=== PATIENT | female | born 1965 | race African-American/Black ===

== ENCOUNTER 2016-10-21 08:48 | Inpatient (IN) | payer OTHER ==
--- NOTE | ~2016-10-21 | CO ---
Unit #: [id number] #: [id number] Patient: HAILEY DONALDSON [id number] [facility] [address] [place], [place] [address] [id number] I MR#: [id number] NAME: HAILEY DONALDSON ROOM: 310 Age: Sex: F Admission Date: 10/21/2016 : 1965 Attending Physician: Rao Jimenez M.D. Primary Care Physician: Misty Slade Requesting Physician: Petra Copeland M.D. Consultation Date: 10/21/2016 CONSULTATION REPORT REASON FOR CONSULT Altered mental status, abnormal speech. PATIENT IDENTIFICATION This is a 51-year-old, -Romanian female evaluated in ER room 9 at [facility]. SOURCE OF INFORMATION Came from the medical record. HISTORY OF PRESENT ILLNESS This is a 51-year-old, -Romanian female with a past medical history that is not known in detail as the patient is a poor historian who presents to [facility] with altered mental status. Apparently, she was found slumped by her car by neighbors. She was not answering questions appropriately. EMS was called and she was brought to the ER for further evaluation. In the ER, her initial vital signs were stable. She was given 0.4 mg of Narcan with minimal to no response or improvement seen. She also received 2 liters of normal saline. Head CT was negative for any acute intracranial findings. Full dictated report is pending. Otherwise, her laboratory findings did show concern for urinary tract infection. She was given a gram of Rocephin and she is being admitted to [facility] for further evaluation and treatment. Neurology was asked to evaluate as the patient continues to be disoriented. She is also perseverating and not getting an appropriate neurologic response. Upon evaluation, the patient responds easily. She is alert, but she is disoriented. She can tell me her name. When I ask her where she is, she continues to tell me her name. She perseverates throughout evaluation. She is disoriented; however, she can name and identify and follow commands. She is not a reliable historian. She denies pain or headache. Upon reevaluation with Dr. Coyle via the robot, the patient become tearful and states "I am sorry," repeatedly. I asked her if she knows about how she got by her car and she states, I don't know, I don't know and she states, I'm sorry, I'm sorry. I asked her if she could have possibly taken the wrong medication or possibly too much medications and she becomes tearful and repeats I'm sorry, I'm sorry; however, she is not able to provide any meaningful history or clues as to why she is actually here. She is not reliable and she is disoriented currently, thus limiting our history. Again, upon my evaluation and repeat evaluation, she has no right-left confusion and she can name and identify and follow commands. She has no field cut. She has no focal weakness or paresthesia. No meningismus. She denies shortness of air or chest pain. Of note, she did have normal blood gas on arrival with pO2 of 58.3 on FIO2 of 21%. She was not hyperthermic. It sounds like she was Unit #: [id number] #: [id number] Patient: HAILEY DONALDSON found by her car rather than in her car. Otherwise, labs are mostly unremarkable. Her ammonia level was 17. Urine tox screen is positive for opiates and TCA, though she appears to have those medications on her med list. Chest x-ray is unremarkable, though limited by low lung volumes and rotation of the patient. There is perihilar and basilar crowding; but no pneumonia, edema, or effusion and heart size is normal. Troponin is unremarkable. BMP is unremarkable, other than a potassium of 3.4 and a glucose of 243. Her acetaminophen level is less than 10, salicylate level less than 4, and alcohol level is less than 5. Her white blood cell count is elevated at 14.1, her hemoglobin is 12.2, her hematocrit is 37.9, and platelet count is 355. PAST MEDICAL HISTORY According to the medicine list that she has, she appears to take medicines for diabetes and also hyperlipidemia. She may have some chronic pain, but I am not sure exactly of her history; but in reviewing her med list, she does take some medications for pain. She is also on Lyrica, though the patient denies a seizure when I ask her, but, again, she is not fully reliable. Lyrica can be used to treat pain, as well. PAST SURGICAL HISTORY Unknown. FAMILY HISTORY Unknown. SOCIAL HISTORY Unknown. ALLERGIES No known drug allergies. HOME MEDICATIONS Patient's medications are obtained from her [facility] pharmacy. They include: 1. Lyrica 100 mg p.o. b.i.d. 2. Lortab 7.5/325 one tab p.o. q.6 hours p.r.n. pain. 3. Invokana 100 mg p.o. every morning. 4. Meloxicam 15 mg p.o. daily. 5. Levemir FlexTouch 30 units subcu. at bedtime. 6. Januvia 100 mg p.o. daily. 7. Lioresal 10 mg p.o. q.h.s. 8. Flexeril 10 mg p.o. 3 times daily p.r.n. 9. Atorvastatin 20 mg p.o. q.h.s. 10. Glucophage 100 mg p.o. b.i.d. REVIEW OF SYSTEMS Unable to fully obtain given patient's mental status and unreliability. She denies pain currently or headache or neck pain. PHYSICAL EXAMINATION VITAL SIGNS: Temperature 98, pulse 112, respirations 18, blood pressure 169/93, blood pressure on arrival was 136/80, and oxygen saturation 98%. Height and weight not documented. NEUROLOGIC: Patient is resting in bed comfortably, but she is easily arousable. She is alert. She is oriented to person only. She perseverates. She is unable to tell me where she is or why she is here. She becomes tearful throughout evaluation. When I ask her her age, she Unit #: [id number] #: [id number] Patient: HAILEY DONALDSON gives me multiple answers, none of which are her actual age. When I ask her what year she was born, she keeps repeating 90, 90, 90. When I ask her questions throughout exam, she keeps repeating I don't know, I don't know, I'm sorry, I'm sorry, I'm sorry; however, she can name and identify and she does that consistently. She can follow simple commands. She has no right/left confusion or finger agnosia. She is not dysarthric. She is emotionally labile. She is tearful at times. CRANIAL NERVES: She responds to threats in the primary and peripheral visual melgar. Eyes are conjugate without ptosis or nystagmus. Extraocular movements are intact. Sensation of face and scalp is intact. Strength of muscles of facial expression is normal. Hearing is intact to voice. Tongue is midline. Unable to fully visualize uvula and palate. Head turning and shoulder shrug are unremarkable on command. NECK: Supple. MOTOR: She demonstrates equal strength. Normal bulk and tone. SENSORY: Intact. Gait and Romberg deferred. REFLEXES: 1 out of 4 toes are equivocal. COORDINATION: Exam did not reveal any ataxia. DIAGNOSTIC STUDIES Labs and diagnostic studies are as per chart and have been reviewed. IMPRESSION 1. Altered mental status, questionable exposure, questionable medication related. Less likely seizure, but must consider. Will request EEG and MRI of the brain if able to safely obtain; although at this time we are unable to get a reliable screening done for safety. 2. UTI. 3. Treatment for sepsis with leukocytosis. 4. Diabetes mellitus type 2. 5. Elevated blood pressure. PLAN We have an unknown last known well, although she is not a candidate for acute intervention. She does not have a focal measurable neurologic deficit, but is perseverating. She is disoriented. She is now tearful, but cannot provide any history. We will certain resume her Lyrica as it is an antiseizure medications and request an EEG. The patient was hypoxic on arrival, but she is clinically improving. Her vital signs are stable. She has no meningismus. She is afebrile. She was not hyperthermic. We will try for a MRI of the brain if we are able to get history and follow up clinically. I called the number listed on her contact information to see if I could reach anyone that may be related to her or know her and apparently, it is not a working number when I try to use it. We are really limited by her history. At this time, nothing to suggest status epilepticus, recurrent seizure, though must consider seizure with postictal state; though, at this time, she is perseverating and a postictal state would not last this long. We have to consider stroke, though she is outside the window for acute intervention. We will attempt to get a MRI when possible. We will resume her home Lyrica dose, check an EEG, check a carboxyhemoglobin level, and get MRI when possible. Otherwise, we will monitor her closely and observe and follow up clinically and further recommendations pending workup and further clinical course. Patient was seen by Dr. Coyle via the robot and he agrees with the above assessment, plan, and recommendations. We will follow along with you. Unit #: [id number] #: [id number] Patient: HAILEY DONALDSON Dictated by... Yohana LojaPDariel for Manav Henderson/malcolm TD: 10/22/2016 08:31 JOB #: [id number] CONSULTATION REPORT Page 1 of 1 X Consuelo Martinez HAND CARVER X CONSULTATION REPORT
--- NOTE | ~2016-10-21 | CT71 ---
[facility] Service of [facility] RADIOLOGY TEXT RESULTS PATIENT: HAILEY DONALDSON LOCATION: [facility] : 61 UNIT #: [id number] AGE: [address]: Rao Jimenez MD SEX: F ORDER DR: [id number] [facility] [address]. [place], [place] [address] [id number] I MR#: [id number] Acc #: [id number] NAME: HAILEY DONALDSON : 1965 SEX: F STUDY DATE/TIME: 10/21/2016 9:48 UNIT: A PCU ROOM: 310 STUDY DESCRIPTION: CT Head Wo Contrast Attending Physician: Petra Copeland M.D. Ordering Physician: Ed Doctor [id number] [facility] Primary Care Physician: Misty Slade MEDICAL IMAGING REPORT This report is preliminary unless electronic signature is present EXAM CT head without contrast dated 10/21/2016 COMPARISON None HISTORY Decreased consciousness. Patient was found staring by neighbors. Lethargic today and not very responsive. TECHNIQUE CT of the head was obtained without contrast in the axial plane as per the protocol. This CT exam was performed with one or more of the following radiation dose reduction techniques: automatic exposure control, adjustment of mA and/or kV according to patient size, and iterative reconstruction. FINDINGS Age-appropriate parenchymal volume is seen. No acute intracranial hemorrhage, space-occupying mass, mass effect, midline shift or hydrocephalus. Paranasal sinuses, mastoid air cells, bones, orbits and the ocular structures do not demonstrate any significant abnormality. IMPRESSION No demonstrable acute intracranial abnormality or space-occupying mass. Dictated by... Helene Clark M.D. THIS IS AN ELECTRONICALLY VERIFIED REPORT Helene Clark M.D. at 10/22/2016 3:34 PM [facility] RADIOLOGY TEXT RESULTS PATIENT: HAILEY DONALDSON LOCATION: [facility] : 61 UNIT #: [id number] AGE: [address]: Rao Jimenez MD SEX: F ORDER DR: NEEMA/mendez TD: 10/21/2016 14:30 JOB #: [id number] MEDICAL IMAGING REPORT Page 1 of 1 COPY
--- NOTE | ~2016-10-21 | MR18 ---
[facility] A Service of [facility] RADIOLOGY TEXT RESULTS PATIENT: HAILEY DONALDSON LOCATION: [facility] 310-01 : [birth year] UNIT #: [id number] AGE: [address]: Rao Jimenez MD SEX: F ORDER DR: [id number] [facility] [address] [place], [place] [address] [id number] I MR#: [id number] Acc #: [id number] NAME: HAILEY DONALDSON : 1965 SEX: F STUDY DATE/TIME: 10/22/2016 18:06 [facility] ROOM: 310 STUDY DESCRIPTION: MR Brain Wo Contrast Attending Physician: Rao Jimenez M.D. Ordering Physician: Petra Copeland M.D. MRI CENTER REPORT This report is preliminary unless electronic signature is present. EXAM MRI brain without contrast HISTORY Lethargy. Memory loss. Decreased level of consciousness. Difficulty speaking since yesterday. FINDINGS MRI brain without contrast demonstrates no recent ischemia or infarct. 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 No intracranial mass or edema. No midline shift or ventricular dilatation or extraaxial fluid collection. IMPRESSION 1. No acute findings. No recent ischemia or infarct. 2. 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 Dictated by... Ramin Yates M.D. THIS IS AN ELECTRONICALLY VERIFIED REPORT Ramin Yates M.D. at 10/23/2016 11:20 PM DFL/pcl TD: 10/22/2016 22:24 JOB #: [id number] MRI CENTER REPORT Page 1 of 1 COPY
--- NOTE | ~2016-10-21 | HP ---
Unit #: [id number] #: [id number] Patient: HAILEY DONALDSON [id number] [facility]. [place], [place] [address] [id number] E MR#: [id number] NAME: HAILEY DONALDSON ROOM: Age: 51 Sex: F Admission Date: 10/21/2016 : 1965 Attending Physician: Noe Lewis M.D. HISTORY AND PHYSICAL CHIEF COMPLAINT Altered mental status. HISTORY OF PRESENT ILLNESS The patient is a 51-year-old female with a past medical history of diabetes and hyperlipidemia who was brought to the emergency department via EMS for evaluation of the above. The patient is a poor historian. History is obtained from discussion with ER staff, as well as record review. The patient was apparently found slumped by a car by the neighbors. She was unable to answer questions. EMS was called, and she was brought to the emergency department for further evaluation. In the emergency department, initial pulse and blood pressure were 108 and 136/80, respectively. She was given 0.4 mg of Narcan with minimal response. She also received two liters of normal saline. CT of the head showed nothing acute. Laboratory is notable for findings concerning for urinary tract infection. She was given a gram of Rocephin, and she is being admitted to [facility] for evaluation and further treatment. PAST MEDICAL HISTORY 1. Diabetes. 2. Hyperlipidemia. PAST SURGICAL HISTORY None. SOCIAL HISTORY The patient is unable to provide due to altered mental status. FAMILY HISTORY Unobtainable. REVIEW OF SYSTEMS A complete review of systems is unobtainable due to altered mental status. PHYSICAL EXAMINATION VITAL SIGNS: Temperature is 98, pulse 108, respirations 16, blood pressure 136/80, and oxygen saturation 100% on room air. GENERAL: Patient is an female who is awake, alert, and in no acute distress. She was apparently initially lethargic. HEENT: Head is atraumatic. Mucous membranes are moist. Unit #: [id number] #: [id number] Patient: HAILEY DONALDSON NECK: Supple. Trachea is midline. CARDIOVASCULAR: Regular rate and rhythm. LUNGS: Clear to auscultation bilaterally with no increased work of breathing. ABDOMEN: Soft and nontender with bowel sounds present in all four quadrants. EXTREMITIES: Nontender with no pedal edema. NEUROLOGIC: Patient is oriented to first name only. She is moving all extremities. She follows some commands. She has abnormal speech. She seems to be perseverating. She is also repeating the word "nervous" multiple times. She is answering "nervous" in response to all questions. PSYCHIATRIC: Patient demonstrates poor eye contact. SKIN: Skin of examined areas is warm and dry. DIAGNOSTIC STUDIES LABORATORY: Arterial blood gas shows a pH of 7.392, PCO2 of 41.6, and PO2 of 53.8 on room air. Complete blood count notable for white blood cell count of 14.1. Comprehensive metabolic panel notable for potassium of 3.4 and glucose is 243. Tylenol, salicylate, and alcohol levels are negative. Ammonia level is 17. Beta hydroxybutyrate is 1.1. Urinalysis notable for nitrite positive, 1+ protein, greater than 1000 glucose, 2+ ketones, and 2+ blood with 10-25 white blood cells, 4+ bacteria, and moderate squamous cells. Urine toxicology screen is positive for opiates and tricyclics. Troponin is less than 0.05. IMAGING: Chest x-ray shows vascular crowding. CT of the head shows nothing acute. CARDIOLOGY: EKG shows sinus tachycardia with a rate of 102 beats per minute. ASSESSMENT The patient is a 51-year-old female with: 1. Altered mental status. 2. Abnormal speech. The patient is repeating the same word multiple times. She is answering questions inappropriately. 3. Urinary tract infection with no urine culture in [facility] for review. The patient received Rocephin in the emergency department. 4. Sepsis. 5. Diabetes. 6. Hyperlipidemia. PLAN 1. Admit to intermediate level. 2. N.p.o. until speech evaluation. 3. Speech Therapy to evaluate and treat. 4. Bedrest. 5. Fall precautions. 6. TSH, B12, and folate. 7. Neuro checks. 8. MRI of the brain without contrast for further evaluation of abnormal speech and altered mental status. 9. Consult Neurology regarding altered mental status and abnormal speech. 10. Blood cultures x2. 11. Urine culture and sensitivity on urine in the lab. 12. Rocephin 1 g IV daily pending results of urine culture. 13. Normal saline at 125 mL/hour. 14. Sepsis protocol with stat lactic acid and repeat. Unit #: [id number] #: [id number] Patient: HAILEY DONALDSON 15. Hemoglobin A1c. 16. Low-dose sliding scale insulin with Accu-Cheks. 17. Serial cardiac enzymes. 18. Check magnesium and CPK. 19. Potassium/magnesium protocol. 20. SCDs for DVT prophylaxis. 21. Repeat labs in the morning including magnesium. 22. Hold centrally-acting medications including Lyrica, Lortab, baclofen, and Flexeril which could be contributing to altered mental status. 1. Dictated by Manav Augustine/kaur TD: 10/21/2016 17:23 JOB #: [id number] HISTORY AND PHYSICAL Page 1 of 1 X Petra Copeland MD HISTORY AND PHYSICAL
--- NOTE | ~2016-10-21 | CR72 ---
[facility] A Service of [facility] & [facility] RADIOLOGY TEXT RESULTS PATIENT: HAILEY DONALDSON LOCATION: [facility] : 61 UNIT #: [id number] AGE: [address]: Noe Lewis MD SEX: F ORDER DR: [id number] [facility] [address] [place], [place] [address] [id number] E MR#: [id number] Acc #: [id number] NAME: HAILEY DONALDSON : 1965 SEX: F STUDY DATE/TIME: 10/21/2016 09:22 UNIT: [facility] ROOM: STUDY DESCRIPTION: CR Chest Single View Portable Attending Physician: Noe Lewis M.D. Ordering Physician: Ed Doctor [id number] [facility] Primary Care Physician: Misty Slade MEDICAL IMAGING REPORT This report is preliminary unless electronic signature is present EXAM Chest portable, 10/21/2016 09:22 hours HISTORY 51-year-old with shortness of air and decreased level of consciousness today. History of diabetes. COMPARISON 08/16/2013 FINDINGS Single portable upright view of the chest demonstrates low lung volumes in rotation of the patient. There is perihilar and basilar vascular crowding without definite pneumonia, edema or effusion. The heart size is normal. No free air in the abdomen. IMPRESSION Film is limited by low lung volumes and rotation of the patient. There is perihilar and basilar vascular crowding but no pneumonia, edema or effusion. Heart size is normal. Dictated by... Lula Herrera M.D. THIS IS AN ELECTRONICALLY VERIFIED REPORT Lula Herrera M.D. at 10/21/2016 2:33 PM Surya TD: 10/21/2016 13:57 JOB #: [id number] MEDICAL IMAGING REPORT Page 1 of 1 COPY
--- NOTE | ~2016-10-21 | HP ---
Unit #: [id number] #: [id number] Patient: HAILEY DONALDSON [id number] [facility]. [place], [place] [address] [id number] I MR#: [id number] NAME: HAILEY DONALDSON ROOM: 310 Age: 51 Sex: F Admission Date: 10/21/2016 : 1965 Attending Physician: Rao Jimenez M.D. Primary Care Physician: Misty Slade HISTORY AND PHYSICAL DISCHARGE DIAGNOSES 1. Anxiety with psychotic features. 2. Urinary tract infection. 3. Diabetic neuropathy. HOSPITAL COURSE The patient is a 51-year-old female who presented to [facility] on 10/21/16 with changes in her mental status. She had apparently been found slumped over in her car. The car was in her driveway at home. She was fairly incoherent and EMS was called. Initially, it was felt the patient was encephalopathic secondary to a urinary tract infection versus some sort of stroke. Workup for both was benign. The patient's mental status returned to baseline over the course of a couple of days. Further discussion with the patient reveals an abnormal amount of stress over the past few weeks. 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 She began to be unable to pay her bills and is afraid she is going to end up homeless which she had apparently been approximately one year ago. The patient states that she became convinced that her apartment was full of bedbugs. She now thinks that this delusion began based on her paresthesias associated with her peripheral neuropathy which she describes as feeling like bugs crawling on her legs at night. The patient is tearful upon discussion of her current situation and has good insight into what has occurred. She agrees to follow up with outpatient counseling be it [facility] or some other setting. I have started the patient on Paxil. DISCHARGE MEDICATIONS 1. Lyrica 100 mg p.o. b.i.d. 2. Glucophage 1000 mg p.o. b.i.d. 3. Januvia 100 mg p.o. daily. 4. Lipitor 20 mg p.o. q. h.s. 5. Levemir FlexPen 30 units subcu at bedtime. 6. Mobic 15 mg p.o. daily. 7. Lortab 7.5/325, one p.o. q.6 hours p.r.n. pain. 8. Baclofen 10 mg p.o. q. h.s. 9. Flexeril 10 mg p.o. t.i.d. 10. Invokana 100 mg p.o. q. a.m. 11. Paxil 20 mg p.o. daily. 12. Keflex 500 mg, one p.o. t.i.d. x9 days. Unit #: [id number] #: [id number] Patient: HAILEY DONALDSON FOLLOWUP As mentioned above, the patient is to follow up with counselor of her choice. Additionally, she should continue her follow up with her neurologist for her neuropathy. Dictated by Manav Kuo/rick TD: 10/25/2016 08:33 JOB #: [id number] HISTORY AND PHYSICAL Page 1 of 1 X Rao Jimenez MD HISTORY AND PHYSICAL
--- NOTE | ~2016-10-21 | EKG ---
PATIENT: HAILEY CEVALLOS UNIT #: [id number] Ventricular Rate: 102 BPM Atrial Rate: 102 BPM P-R Interval: 142 ms QRS Duration: 148 ms Q-T Interval: 428 ms QTC Calculation(Bezet): 557 ms P Castle: 66 degrees Calculated R Castle: 82 degrees Calculated T Castle: 24 degrees Diagnosis Line: Sinus tachycardia Diagnosis Line: Right bundle branch block with repolarization Diagnosis Line: abnormality Diagnosis Line: Abnormal ECG Diagnosis Line: No previous ECGs available Diagnosis Line: Confirmed by SUMAN PELLETIER MD ([id number]) on 10/21/2016 Diagnosis Line: 11:57:52 AM INTERPRETING MD: PRABHU MARK
--- NOTE | ~2016-10-21 | EE ---
Unit #: [id number] #: [id number] Patient: HAILEY DONALDSON [id number] [address] [address] [id number] MR#: [id number] NAME: HAILEY DONALDSON : 1965 SEX: F STUDY DATE/TIME: 10/22/2016 UNIT: C3A PCU ROOM: 310 STUDY DESCRIPTION: EEG Attending Physician: Rao Jimenez M.D. Referring Physician: Petra Copeland M.D. Primary Care Physician: Misty Slade NEURODIAGNOSTICS REPORT PROCEDURE PERFORMED EEG. REASON FOR STUDY Acute mental status changes, UTI and sepsis. EEG DESCRIPTION This is an inpatient, digitally recorded, multi-montage, adult EEG with leads placed according to the International 10-20 system. Hyperventilation and photic stimulation were attempted. PROCEDURE REPORT With the patient fully aroused, there is 9- to 10-Hz posterior background, but there was then alpha dropout. The patient did become drowsy, but I did not see any deeper stages of sleep. Hyperventilation and photic stimulation were attempted, but I did not see any driving, asymmetry or paroxysmal activity. No focal slowing was seen. No clearcut interictal discharges were seen. IMPRESSION This is an essentially normal adult, awake and drowsy EEG. An EEG like this does not rule out epilepsy. Clinical correlation is recommended. Dictated by... Manav Henderson/rima TD: 10/27/2016 08:45 JOB #: [id number] Unit #: [id number] #: [id number] Patient: HAILEY DONALDSON NEURODIAGNOSTICS REPORT Page 1 of 1 X Alexus Coyle MD NEURODIAGNOSTICS REPORT
[2016-10-21 10:42] LABS: ARTERIAL BLD GAS O2 SATURATION 90.1 % (90.0-100.0); ARTERIAL BLOOD GAS CARBOXY HB 1.6 %sat (0.0-9.0); ARTERIAL BLOOD GAS HCO3 25.3 mmol/L; ARTERIAL BLOOD GAS MET HB 0.9 %sat (0.0-2.0); ARTERIAL BLOOD GAS PCO2 41.6 mmHg (35.0-45.0); ARTERIAL BLOOD GAS pH 7.392 (7.350-7.450)
[2016-10-21 10:43] LABS: ARTERIAL BLOOD GAS ALLEN TEST NORMAL; ARTERIAL BLOOD GAS ART SITE RIGHT RADIAL; ARTERIAL BLOOD GAS PO2 53.8 mmHg (80.0-100); ARTERIAL DRAW? YES
[2016-10-21 11:09] LABS: BASOPHIL% 0.2 % (0-2.5); HEMATOCRIT 37.9 % (35.0-45.0); HEMOGLOBIN 12.2 gm/dL (12.0-16.0); LYMPHOCYTE% 7.5 % (17.0-45.0); MEAN CELL VOLUME 87.5 FL (83-96); MEAN CORPUSCULAR HEMOGLOBIN 28.2 PG (28-34); MEAN CORPUSCULAR HGB CONC 32.2 g/dL (30-36); MEAN PLATELET VOLUME 7.4 FL (6.5-11.5); MONOCYTE# 0.6 X10e3 (0-1.0); NEUTROPHIL# 12.4 X10e3 (1.5-7.1); NEUTROPHIL% 88.3 % (40-75); PLATELET COUNT 355 X10e3 (140-420); RED BLOOD COUNT 4.33 X10e (3.90-5.30); RED CELL DISTRIBUTION WIDTH 14.1 % (11.0-15.5); WHITE BLOOD COUNT 14.1 X10e3 (4.0-10.5)
[2016-10-21 11:17] LABS: DIFF IND NO
[2016-10-21 11:34] LABS: ALBUMIN SERUM 4.2 g/dL (3.5-5.0); ALKALINE PHOSPHATASE 56 U/L (32-92); ALT (SGPT) 20 U/L (10-40); AST (SGOT) 18 U/L (10-42); BILIRUBIN, DIRECT 0.1 mg/dL (0.0-0.2); BILIRUBIN,INDIRECT 0.7 mg/dL (0.0-0.9); BILIRUBIN,TOTAL 0.8 mg/dL (0.2-2.0); BLOOD UREA NITROGEN 14 mg/dL (9-23); BUN/CREATININE RATIO 23.33; CALCIUM SERUM 9.3 mg/dL (8.4-10.2); CARBON DIOXIDE 26 mmol/L (22-31); CHLORIDE 101 mmol/L (100-111); CREATININE SERUM 0.6 mg/dL (0.6-1.4); GLOM FILT RATE Estimated 104.1 mL/min (>60); GLUCOSE FASTING 243 mg/dL (70-110); POTASSIUM 3.4 mmol/L (3.5-5.1); PROTEIN TOTAL SERUM 7.8 g/dL (6.0-8.3); SALICYLATE <4.0 mg/dL; SODIUM 135 mmol/L (135-145)
[2016-10-21 11:35] LABS: ACETAMINOPHEN <10 ug/mL; ALCOHOL BLOOD <5 mg/dL (0)
[2016-10-21 11:41] LABS: URINE SOURCE CLEAN CATCH
[2016-10-21] MEDS ORDERED: LYRICA PO (11:49)
[2016-10-21] MEDS ORDERED: PATIENT'S PHARMACY (11:49)
[2016-10-21] MEDS ORDERED: MOBIC PO (11:50)
[2016-10-21] MEDS ORDERED: INVOKANA100 MG PO (11:50)
[2016-10-21] MEDS ORDERED: LORTAB 7.5-3251 EACH PO (11:50)
[2016-10-21] MEDS ORDERED: FLEXERIL10 MG PO (11:51)
[2016-10-21] MEDS ORDERED: LIPITOR20 MG PO (11:51)
[2016-10-21] MEDS ORDERED: LIORESAL10 MG PO (11:51)
[2016-10-21] MEDS ORDERED: JANUVIA PO (11:51)
[2016-10-21] MEDS ORDERED: LEVEMIR FL100 UNIT/1 SUBQ (11:51)
[2016-10-21] MEDS ORDERED: METFORMIN PO (11:52)
[2016-10-21 12:00] LABS: URINE APPEARANCE CLOUDY; URINE BILIRUBIN NEG (NEG); URINE BLOOD 2+ (NEG); URINE COLOR YELLOW; URINE GLUCOSE >1000 MG/DL (NEG); URINE KETONE 2+ (NEG); URINE LEUKOCYTE ESTERASE NEG (NEG); URINE NITRATE POS (NEG); URINE PH 5.5 (5-8); URINE PROTEIN 1+ (NEG); URINE SPECIFIC GRAVITY 1.031 (1.003-1.035)
[2016-10-21 12:03] LABS: CULTURE INDICATED? YES; URBCS1 AUWI 0-2 /[HPF] (0-2); URINE BACTERIA AUWI 4+ (NEGATIVE); URINE SQUAMOUS EPITHELIAL CELL MOD /[HPF]
[2016-10-21 12:22] LABS: AMPHETAMINE NEG (NEG); BARBITURATES NEG (NEG); BENZODIAZEPINES NEG (NEG); COCAINE NEG (NEG); MARIJUANA NEG (NEG); OPIATES POS (NEG); TRICYCLIC ANTIDEPRESSANTS POS (NEG); U METHADONE NEG (NEG)
[2016-10-21 14:48] LABS: POC - CKMB 5.9 ng/mL (0.0-7.9); POC - TROPONIN <0.05 ng/mL (<=0.05)
[2016-10-21 20:26] LABS: MAGNESIUM 1.6 mg/dL (1.6-3.0)
[2016-10-21 20:54] LABS: FOLATE (FOLIC ACID) >23.3 ng/mL (>5.8)
[2016-10-21 23:43] LABS: %MB 3.7 % (0.0-4.0); MB 7.1 ng/ml
[2016-10-22 04:15] LABS: BASOPHIL# 0.1 X10e3 (0-0.3); BASOPHIL% 0.8 % (0-2.5); DIFF IND NO; EOSINOPHIL# 0.1 X10e3 (0-0.7); EOSINOPHIL% 1.1 % (0.0-7.0); HEMOGLOBIN 12.3 gm/dL (12.0-16.0); LYMPHOCYTE# 2.2 X10e3 (1.0-3.5); LYMPHOCYTE% 19.3 % (17.0-45.0); MEAN CELL VOLUME 86.6 FL (83-96); MEAN CORPUSCULAR HEMOGLOBIN 28.2 PG (28-34); MEAN CORPUSCULAR HGB CONC 32.5 g/dL (30-36); MEAN PLATELET VOLUME 6.9 FL (6.5-11.5); MONOCYTE# 0.8 X10e3 (0-1.0); MONOCYTE% 6.6 % (3.0-12.0); NEUTROPHIL# 8.4 X10e3 (1.5-7.1); NEUTROPHIL% 72.2 % (40-75); PLATELET COUNT 363 X10e3 (140-420); RED BLOOD COUNT 4.38 X10e (3.90-5.30); RED CELL DISTRIBUTION WIDTH 14.3 % (11.0-15.5); WHITE BLOOD COUNT 11.7 X10e3 (4.0-10.5)
[2016-10-22 04:56] LABS: ALBUMIN SERUM 3.8 g/dL (3.5-5.0); BILIRUBIN,TOTAL 0.6 mg/dL (0.2-2.0); CALCIUM SERUM 8.8 mg/dL (8.4-10.2); CREATININE SERUM 0.5 mg/dL (0.6-1.4); GLOM FILT RATE Estimated 128.1 mL/min (>60); PROTEIN TOTAL SERUM 6.8 g/dL (6.0-8.3)
[2016-10-22 04:59] LABS: %MB 3.7 % (0.0-4.0); MB 5.8 ng/ml
[2016-10-22 05:00] LABS: POTASSIUM 2.7 mmol/L (3.5-5.1)
[2016-10-23 06:28] LABS: HEMATOCRIT 36.6 % (35.0-45.0); HEMOGLOBIN 12.1 gm/dL (12.0-16.0); MEAN CELL VOLUME 86.2 FL (83-96); MEAN CORPUSCULAR HEMOGLOBIN 28.4 PG (28-34); MEAN CORPUSCULAR HGB CONC 32.9 g/dL (30-36); MEAN PLATELET VOLUME 9.3 FL (6.5-11.5); RED BLOOD COUNT 4.25 X10e (3.90-5.30); RED CELL DISTRIBUTION WIDTH 14.6 % (11.0-15.5); WHITE BLOOD COUNT 8.2 X10e3 (4.0-10.5)
[2016-10-23 07:02] LABS: CALCIUM SERUM 8.9 mg/dL (8.4-10.2); CREATININE SERUM 0.5 mg/dL (0.6-1.4); GLOM FILT RATE Estimated 128.1 mL/min (>60); MAGNESIUM 1.6 mg/dL (1.6-3.0); POTASSIUM 3.3 mmol/L (3.5-5.1)
[2016-10-23 16:59] LABS: URINE SOURCE CATH
[2016-10-23 17:05] LABS: URINE APPEARANCE CLOUDY; URINE BILIRUBIN NEG (NEG); URINE BLOOD 1+ (NEG); URINE COLOR YELLOW; URINE GLUCOSE 500 MG/DL (NEG); URINE KETONE TRACE (NEG); URINE LEUKOCYTE ESTERASE 3+ (NEG); URINE NITRATE NEG (NEG); URINE PROTEIN NEG (NEG); URINE SPECIFIC GRAVITY 1.015 (1.003-1.035)
[2016-10-23 17:08] LABS: URINE BACTERIA AUWI 4+ (NEGATIVE); URINE SQUAMOUS EPITHELIAL CELL MOD /[HPF]; UWBCS1 AUWI 100-200 (0-5)
[2016-10-24 06:16] LABS: HEMATOCRIT 36.8 % (35.0-45.0); HEMOGLOBIN 12.1 gm/dL (12.0-16.0); MEAN CELL VOLUME 86.1 FL (83-96); MEAN CORPUSCULAR HEMOGLOBIN 28.2 PG (28-34); MEAN CORPUSCULAR HGB CONC 32.8 g/dL (30-36); MEAN PLATELET VOLUME 7.4 FL (6.5-11.5); RED BLOOD COUNT 4.27 X10e (3.90-5.30); RED CELL DISTRIBUTION WIDTH 14.5 % (11.0-15.5); WHITE BLOOD COUNT 7.3 X10e3 (4.0-10.5)
[2016-10-24 06:58] LABS: CALCIUM SERUM 8.7 mg/dL (8.4-10.2); CARBON DIOXIDE 26 mmol/L (22-31); CHLORIDE 105 mmol/L (100-111); CREATININE SERUM 0.4 mg/dL (0.6-1.4); GLOM FILT RATE Estimated 137.9 mL/min (>60); GLUCOSE FASTING 180 mg/dL (70-110); MAGNESIUM 1.8 mg/dL (1.6-3.0); SODIUM 137 mmol/L (135-145)
[2016-10-24 07:04] LABS: BLOOD UREA NITROGEN <5 mg/dL (9-23)
[2016-10-24] MEDS ORDERED: KEFLEX500 M2 PO (17:06)
[2016-10-24] MEDS ORDERED: PAXIL PO (17:07)
== END 2016-10-24 19:07 | disposition home or self-care (01) | DRG 872 ==
LOC: CED 08:48 → C3A PCU 15:55 → CEDOF 15:55 → CED 16:15 → CEDOF 16:15 → C3A PCU 20:39 → CEDOF 20:39 → C3A PCU 20:39
PROVIDERS: Emergency Medicine; Family Medicine; Internal Medicine; Nurse Practitioner; Physician Assistant
DX: A41.9 Sepsis, unspecified organism (principal); E11.40 Type 2 diabetes mellitus with diabetic neuropathy, unspecified; N39.0 Urinary tract infection, site not specified; R41.82 Altered mental status, unspecified; E78.5 Hyperlipidemia, unspecified; Z79.4 Long term (current) use of insulin; F41.8 Other specified anxiety disorders; R47.89 Other speech disturbances; R03.0 Elevated blood-pressure reading, without diagnosis of hypertension; E87.6 Hypokalemia
CPT/HCPCS: 36600; 51702; 70450; 70551; 71010; 80048; 80053; 80076; 80307; 81003; 82010; 82140; 82375; 82550; 82553; 82607; 82746; 82803; 82947; 83036; 83605; 83735; 84443; 84484; 84703; 85025; 85027; 87040; 87086; 87088; 87186; 92610; 93005; 95816; 96361; 96365; 96375; 99285; G0480; G8996-GN; G8997-GN; G8998-GN; J0360; J0696; J1815; J2060; J3475